=== PATIENT | male | born 1975 | race Caucasian/White ===

== ENCOUNTER 2019-07-12 06:39 | Day surgery (SDC) | payer OTHER ==
[~2019-07-12] VITALS: Ht 170.2 cm; Wt 107.6 kg
[~2019-07-12 06:39] MED LIST: no medication
[2019-07-12 07:04] VITALS: Ht 170.2 cm; Wt 107.6 kg
[2019-07-12 07:21] VITALS: BP 127/79; PULSE 58; RESP 25
[2019-07-12] MEDS ORDERED: PROPOFOL 60 ML ONE (08:05)
[2019-07-12 08:30] VITALS: BP 115/70; RESP 14
== END 2019-07-12 14:24 | disposition home or self-care (01) ==
LOC: GIL 06:39
PROVIDERS: ATTEND Internal Medicine Gastroenterology
DX: Z12.11 Encounter for screening for malignant neoplasm of colon (principal); K64.4 Residual hemorrhoidal skin tags; E66.9 Obesity, unspecified; Z68.37 Body mass index [BMI] 37.0-37.9, adult
CPT/HCPCS: 45380; 88305; Z7610